=== PATIENT | male | born 1990 ===

== ENCOUNTER → 2019-12-09 | Outpatient (CLI) | payer OTHER | END | disposition home or self-care (01) | LOC: OFIC 805 12:30 | PROVIDERS: ATTEND Otolaryngology | DX: R09.81 Nasal congestion (principal); J34.2 Deviated nasal septum ==

== ENCOUNTER → 2020-01-04 | Outpatient (CLI) | payer OTHER | END | disposition home or self-care (01) | LOC: OFIC 805 12-22 15:30 | PROVIDERS: ATTEND Otolaryngology | DX: J34.3 Hypertrophy of nasal turbinates (principal); J34.2 Deviated nasal septum; R09.81 Nasal congestion ==

== ENCOUNTER 2020-01-26 09:01 | Outpatient (CLI) | payer OTHER | END 2020-01-26 10:15 | disposition home or self-care (01) | LOC: OFIC 805 09:01 | PROVIDERS: ATTEND Otolaryngology | DX: R09.81 Nasal congestion (principal); J34.3 Hypertrophy of nasal turbinates; J34.2 Deviated nasal septum ==

== ENCOUNTER 2020-02-20 09:00 | Day surgery (SDC) | payer OTHER ==
[~2020-02-20 09:00] MED LIST: FLONASE16 GM; ZYRTEC10 M3
[2020-02-20] MEDS ORDERED: AMOX1TAB5 PO (18:35)
[2020-02-20] MEDS ORDERED: MEDROLPACK PO (18:35)
[2020-02-20] MEDS ORDERED: NEILMED SINUS1 EACH NASAL (18:36)
== END 2020-02-20 21:30 | disposition home or self-care (01) ==
LOC: CIR.AMB 09:00 → EDBD 11:00 → CIR.AMB 11:00
PROVIDERS: ATTEND Otolaryngology
DX: J34.2 Deviated nasal septum (principal); J34.3 Hypertrophy of nasal turbinates; Z20.828 Contact with and (suspected) exposure to other viral communicable diseases

== ENCOUNTER 2020-02-28 07:58 | Outpatient (CLI) | payer OTHER ==
[~2020-02-28 07:58] MED LIST changes: +AMOX1TAB5 PO; +MEDROLPACK PO; +NEILMED SINUS1 EACH NASAL
== END 2020-02-28 10:00 | disposition home or self-care (01) ==
LOC: OFIC 805 07:58
PROVIDERS: ATTEND Otolaryngology
DX: R09.81 Nasal congestion (principal); J34.2 Deviated nasal septum; J34.3 Hypertrophy of nasal turbinates

== ENCOUNTER → 2020-03-27 | Outpatient (CLI) | payer OTHER | END | disposition home or self-care (01) | LOC: OFIC 805 08:30 | PROVIDERS: ATTEND Otolaryngology | DX: J34.3 Hypertrophy of nasal turbinates (principal); R09.81 Nasal congestion; J34.2 Deviated nasal septum ==

== ENCOUNTER 2020-06-11 11:36 | Outpatient (CLI) | payer OTHER | END 2020-06-11 16:13 | disposition home or self-care (01) | LOC: OFIC 805 11:36 | PROVIDERS: ATTEND Otolaryngology | DX: J34.3 Hypertrophy of nasal turbinates (principal); J34.2 Deviated nasal septum; R09.81 Nasal congestion; J30.89 Other allergic rhinitis ==